=== PATIENT | male | born 1955 | race Two or more races ===

== ENCOUNTER 2023-10-15 08:32 | Day surgery (SDC) | payer OTHER ==
[2023-10-13 09:31] LABS: HEMATOCRIT 44.5 % (39.0-48.0); HEMOGLOBIN 15.3 g/dL (13-16.00); MEAN CELL VOLUME 89.7 fL (80.0-100.00); MEAN CORPUSCULAR HEMOGLOBIN 30.8 pg (27.00-32.0); MEAN CORPUSCULAR HGB CONC 34.3 g/dl (32.0-36.0); PLATELET COUNT 184 K/uL (150-450); RED BLOOD COUNT 4.96 M/uL (4.00-6.00); RED CELL DISTRIBUTION WIDTH 13.8 % (11.5-14.5)
[2023-10-13 09:36] LABS: PH,URINE 5.5 (5.0-8.0); URINE APPEARANCE Clear; URINE BILIRRUBIN Negative (NEGATIVE); URINE BLOOD Negative; URINE COLOR Yellow; URINE LEUKOCYTE Negative; URINE NITRATE Negative; URINE PROTEIN Negative (NEGATIVE)
[2023-10-13 09:42] LABS: URINE RBC 3.1 uL (0.0-20.8); URINE WBC 2.6 uL (0.0-23.2)
[2023-10-13 09:55] LABS: URINE BACTERIA 3.7 uL (0.0-1933); URINE GLUCOSE >=1000 MG/DL (NEGATIVE)
[2023-10-13 09:59] LABS: INR 1.07; PARTIAL THROMBOPLASTIN TIME 30.9 SECONDS (22.0-34.0); PROTHROMBIN TIME 11.2 SECONDS (9.0-11.5)
[2023-10-13 10:23] LABS: ALBUMIN 3.8 gm/dL (3.4-5.0); BILIRUBIN TOTAL 0.83 mg/dL (0.3-1.2); CALCIUM 9.3 mg/dL (8.5-10.1); CREATININE SERUM 0.92 mg/dL (0.70-1.30); GFR 81.33; GLOBULINA 3.6 G/DL (2.4-3.5); POTASSIUM 4.24 mEq/L (3.5-5.1); TOTAL PROTEIN 7.4 gm/dL (6.4-8.2)
[~2023-10-15 08:32] MED LIST: LANTUS; NOVOLOG MI100 UNIT/1; XARELTO20 MG PO
== END 2023-10-15 17:15 | disposition home or self-care (01) ==
LOC: CIR.AMB 08:32
PROVIDERS: ATTEND Orthopaedic Surgery
DX: M75.121 Complete rotator cuff tear or rupture of right shoulder, not specified as traumatic (principal); M75.01 Adhesive capsulitis of right shoulder; M75.21 Bicipital tendinitis, right shoulder; M24.111 Other articular cartilage disorders, right shoulder; Z20.822 Contact with and (suspected) exposure to COVID-19; E11.9 Type 2 diabetes mellitus without complications